=== PATIENT | female | born 1950 | race Caucasian/White ===

== ENCOUNTER 2023-07-22 10:03 | Emergency (ER) | payer SELFPAY ==
[~2023-07-22] VITALS: Ht 165.1 cm; Wt 75.0 kg
[2023-07-22 10:11] VITALS: TEMP 97.9; O2SAT 99
[2023-07-22 10:28] VITALS: BP 141/75; PULSE 86; RESP 18
[2023-07-22] MEDS ORDERED: IBUPROFEN 600MG TABLET PO STA (10:28)
[2023-07-22] MEDS ORDERED: ONDANSETRON 4MG ODT PO STA (10:29)
[2023-07-22] MEDS ORDERED: IBUP-2028 MT (11:55)
== END 2023-07-22 13:46 | disposition home or self-care (01) ==
LOC: ER 10:03
DX: S80.02XA Contusion of left knee, initial encounter (principal); E11.9 Type 2 diabetes mellitus without complications; X58.XXXA Exposure to other specified factors, initial encounter; Y93.89 Activity, other specified; Y92.89 Other specified places as the place of occurrence of the external cause; Y99.8 Other external cause status
CPT/HCPCS: 73502; 73560; 73700; 29505; 99284; Q0162; Z7610; L1830